=== PATIENT | female | born 1980 | race Caucasian/White ===

== ENCOUNTER → 2020-05-15 | Outpatient (CLI) | payer BC ==
--- NOTE | 2020-05-15 14:45 | RAD ---
EXAM: Abdomen sonogram. HISTORY: Pain. TECHNIQUE: Sonographic imaging of the abdomen was performed. COMPARISON: None. FINDINGS: The liver is normal in size. No focal hepatic lesion is seen. There is cholelithiasis. The gallbladder is distended. The gallbladder wall is mildly thickened. The kidneys, spleen, aorta and in ferior vena cava are unremarkable. The pancreas is obscured due to bowel gas. IMPRESSION: 1. Cholelithiasis. The gallbladder is distended and there is slight gallbladder wall thickening. This can be seen with cholecystitis. 2. Obscured pancreas due to bowel gas. Electronically signed by: Christina Combs MD (05/15/2020 2:43 PM) [id number]
== END ==
LOC: US 08:48
PROVIDERS: ATTEND Family Medicine
DX: K80.20 Calculus of gallbladder without cholecystitis without obstruction (principal); K82.8 Other specified diseases of gallbladder
CPT/HCPCS: 76700